=== PATIENT | male | born 1955 | race African-American/Black ===

== ENCOUNTER → 2017-12-07 | Outpatient (CLI) | payer MEDICARE, OTHER ==
[~2017-12-07] VITALS: Ht 177.8 cm; Wt 91.5 kg
[~2017-12-07] MED LIST: AMLO5TAB2 PO; ASPI81TA23 PO; CALC0.25 PO; CARV12.52 PO; CHLORHEXIDINE GLUCONATE 2 % 1 PACK (2 CLOTHS) TOPICAL PRN; FURO40TA PO; INSU1INJ13 SQ; LACTATED RINGER'S 1000 ML IV PRN; LISI-515 PO; METOPROLOL TARTRATE 25 MG TAB PO PRN; NOVOINJ3 SQ; POVIDONE IODINE 5% (ANTISEPSIS KIT) 4 APPLICATIONS EACH NARE PRN; SODIUM CHLORID 0.9% 500 ML IV PRN
[2017-12-07 08:32] VITALS: BP 106/74; PULSE 88; RESP 20; TEMP 98; O2SAT 98
[2017-12-07 09:49] LABS: BICARBONATE 28.2 MEQ/L (21.0-32.0); CALCIUM 8.5 MG/DL (8.5-10.1)
[2017-12-07 09:52] LABS: CREATININE 10.44 MG/DL (0.60-1.30)
[2017-12-07 11:08] VITALS: TEMP 97.4
--- NOTE | 2017-12-07 11:08 | PD.PROCEDR ---
GI Procedure PROCEDURE PERFORMED Endoscopy with biopsy Colonoscopy with polypectomy INDICATION FOR PROCEDURE Anemia Screening pretransplant PROCEDURE: The procedure, risks and benefits were discussed with Mr. Green and informed consent was obtained. Anesthesia sedated him with Diprivan. He was placed in the left lateral decubitus position. EGD: The Pentax videoscope was introduced through the oropharynx and advanced to the second portion of the duodenum under direct visualization. Retroflexion was performed in the stomach. Biopsy from the EG junction for irregular Z line, biopsy from the antrum to rule out H. pylori Colonoscopy: The Pentax videoscope was introduced through the rectum and advanced to cecum which was identified by the ileocecal valve and appendiceal orifice. Retroflexion was performed in the rectum. Colonic prep was good, small polyp in the sigmoid completely removed ESTIMATED BLOOD LOSS: None SPECIMENS REMOVED: Distal esophagus, antrum, colon polyps from the sigmoid COMPLICATIONS: None IMPRESSION: Irregular Z line biopsy from the EG junction Redness in the stomach questionable gastritis biopsy to rule out H. pylori Small polyp in the sigmoid removed Normal examination otherwise PLAN: Follow up biopsy Colonoscopy in 5 years Okay for transplant from GI perspective Larger H&H periodically Hero Sanchez MD Dec 07, 2017 11:08
[2017-12-07 11:29] VITALS: BP 108/62; PULSE 72; RESP 18; O2SAT 97
--- NOTE | 2017-12-08 00:23 | EKG ---
Date Performed: 12/07/2017 Time Performed: 08:24:40 PTAGE: 62 years EKG: Sinus rhythm WITH OCCASIONAL VENTRICULAR PREMATURE COMPLEXES MODERATE T-WAVE ABNORMALITY, CONSIDER LATERAL ISCHEM IA ABNORMAL ECG PREVIOUS TRACING : 05/08/2012 07.55 Since the prior tracing, there has been no significant isabel DOCTOR: Lorne Yan Interpretating Date/Time 12/08/2017 00:22:30
== END ==
LOC: HSDC 07:56
PROVIDERS: ATTEND Hospitalist
DX: Z12.11 Encounter for screening for malignant neoplasm of colon (principal); K63.89 Other specified diseases of intestine; K20.9 Esophagitis, unspecified; B96.81 Helicobacter pylori [H. pylori] as the cause of diseases classified elsewhere; D64.9 Anemia, unspecified; I12.9 Hypertensive chronic kidney disease with stage 1 through stage 4 chronic kidney disease, or unspecified chronic kidney disease; E11.22 Type 2 diabetes mellitus with diabetic chronic kidney disease; N18.4 Chronic kidney disease, stage 4 (severe); Z99.2 Dependence on renal dialysis
CPT/HCPCS: 36415; 80048; 82948; 88305; 93005